=== PATIENT | female | born 1930 | race Caucasian/White ===

== ENCOUNTER 2016-12-01 04:02 | Emergency (ER) | payer OTHER ==
[~2016-12-01] VITALS: Ht 144.8 cm; Wt 56.7 kg
[~2016-12-01 04:02] MED LIST: AMLODIPINE BESY10 MG PO; ASPIRIN81 MG PO; ATACAND32 MG PO; DEPAKENE250 MG; GLUCOPHAGE1000 MG PO; LISINOPRIL40 MG PO; NORCO 5-325 TA1 EACH PO; PLAVIX 75 MG TA75 M1 PO; ZETIA10 MG PO
[2016-12-01 04:05] VITALS: BP 177/82
[2016-12-01] MEDS ORDERED: COZAAR 50 MG TA50 M2 (04:23)
== END 2016-12-01 04:53 | disposition home or self-care (01) ==
LOC: ER 04:02
DX: S51.811A Laceration without foreign body of right forearm, initial encounter (principal); I10 Essential (primary) hypertension; E11.9 Type 2 diabetes mellitus without complications; E78.5 Hyperlipidemia, unspecified; Z98.890 Other specified postprocedural states; Z88.1 Allergy status to other antibiotic agents; Z88.8 Allergy status to other drugs, medicaments and biological substances; W27.4XXA Contact with kitchen utensil, initial encounter; Y93.89 Activity, other specified; Y92.89 Other specified places as the place of occurrence of the external cause; Y99.8 Other external cause status

== ENCOUNTER 2018-05-05 17:17 | Emergency (ER) | payer OTHER ==
[~2018-05-05] VITALS: Ht 144.8 cm; Wt 52.2 kg
[~2018-05-05 17:17] MED LIST changes: +COZAAR 50 MG TA50 M2
[2018-05-05 18:26] VITALS: BP 194/69
== END 2018-05-05 18:26 | disposition home or self-care (01) ==
LOC: ER 17:17
DX: S00.03XA Contusion of scalp, initial encounter (principal); I10 Essential (primary) hypertension; E11.9 Type 2 diabetes mellitus without complications; E78.5 Hyperlipidemia, unspecified; Z88.8 Allergy status to other drugs, medicaments and biological substances; Z88.2 Allergy status to sulfonamides; Z90.13 Acquired absence of bilateral breasts and nipples; Z85.3 Personal history of malignant neoplasm of breast; W01.198A Fall on same level from slipping, tripping and stumbling with subsequent striking against other object, initial encounter; Y92.89 Other specified places as the place of occurrence of the external cause; Y93.89 Activity, other specified; Y99.8 Other external cause status